=== PATIENT | female | born 1995 | race Caucasian/White ===

== ENCOUNTER 2016-10-03 23:57 | Emergency (ER) | payer MEDICAID ==
[~2016-10-03] VITALS: Ht 160 cm; Wt 61.4 kg
[~2016-10-03 23:57] MED LIST: BIRTH CONTROL; FLAGYL500 MG PO; FLEXERIL 1010 MG/TAB PO; NO HOME MEDICATIONS; PREDNISONE20 MG PO; PROAIR HFA0.09 MG/AC IH; ZITHROMAX500 M2 PO; ZOVIRAX400 MG PO
[2016-10-04 00:01] VITALS: PULSE 86; TEMP 97.5
[2016-10-04 00:49] LABS: PH 6 (5-8); SQUAMOUS EPITHELIAL 0-2 /hpf; URINE APPEARANCE Clear; URINE BACTERIA Rare /hpf; URINE BILIRUBIN Negative (NEGATIVE); URINE BLOOD Negative (NEGATIVE); URINE COLOR Yellow; URINE GLUCOSE Negative (NEGATIVE); URINE KETONE Negative (NEGATIVE); URINE RBC 0-2 /hpf; URINE UROBILINOGEN Negative (NEGATIVE)
[2016-10-04 01:06] LABS: INFLUENZA B NEGATIVE
[2016-10-04] MEDS ORDERED: ZITHROMAX 250M250 MG PO (01:12)
[2016-10-04] MEDS ORDERED: PREDNISONE20 MG PO (01:12)
[2016-10-04 01:40] VITALS: BP 118/77
== END 2016-10-04 01:40 | disposition home or self-care (01) ==
LOC: COL.ER 23:57
PROVIDERS: Emergency Medicine
DX: O99.512 Diseases of the respiratory system complicating pregnancy, second trimester (principal); Z3A.21 21 weeks gestation of pregnancy; J32.9 Chronic sinusitis, unspecified; J40 Bronchitis, not specified as acute or chronic
CPT/HCPCS: J7512

== ENCOUNTER 2017-01-19 09:57 | Inpatient (IN) | payer MEDICAID ==
[~2017-01-19] VITALS: Ht 162.7 cm; Wt 73.6 kg
[~2017-01-19 09:57] MED LIST changes: +ZITHROMAX 250M250 MG PO
[2017-02-06] VITALS (27 sets, daily range): BP systolic 124–166; BP diastolic 80–109; PULSE 63–89; TEMP 97.6–98.2
[2017-02-06] MEDS ORDERED: PRENATAL (07:35)
[2017-02-06 07:53] LABS: MEAN CELL VOLUME 87 fl (80.0-95.0); MEAN CORPUSCULAR HEMOGLOBIN 31 pg (26.0-32.0); MEAN CORPUSCULAR HGB CONC 35 g/dl (33.0-37.0); MEAN PLATELET VOLUME 10.6 fl (7.4-10.4); PLATELET COUNT 330 K/mm3 (130-400); RED BLOOD COUNT 3.94 M/mm3 (4.10-5.30); REDCELL DISTRIBUTION WIDTH-CV 12.8 % (11.5-14.5); WHITE BLOOD COUNT 15.4 K/mm3 (4.8-10.8)
[2017-02-06 07:57] LABS: ADD PATHOLOGY DIFF REVIEW NO; HEMATOCRIT 34.2 % (35.0-45.0)
[2017-02-06 08:12] LABS: NEUTROPHILS 69 % (42.0-75.2); TOTAL CELLS COUNTED 100
[2017-02-06 08:18] LABS: AMPHETAMINE URINE NEGATIVE; BARBITURATES URINE NEGATIVE; BENZODIAZEPINES URINE NEGATIVE; BUPRENORPHINE URINE NEGATIVE; METHADONE URINE NEGATIVE; OPIATES URINE NEGATIVE; OXYCODONE URINE NEGATIVE; PHENCYCLIDINE URINE NEGATIVE; PROPOXYPHENE URINE NEGATIVE; THC CANNABINOIDS URINE NEGATIVE
[2017-02-06 13:20] LABS: BASO % 0.2 % (0.0-2.0); GRAN # 15.2 (1.4-6.5); LYMPH # 2.3 (1.2-3.4); LYMPH % 12.1 % (20.0-51.0); MEAN CELL VOLUME 86 fl (80.0-95.0); MEAN CORPUSCULAR HGB CONC 36 g/dl (33.0-37.0); MEAN PLATELET VOLUME 10.4 fl (7.4-10.4); MONO # 1.2 (0.1-0.6); MONO % 6.3 % (1.7-9.3); PLATELET COUNT 266 K/mm3 (130-400); RED BLOOD COUNT 3.39 M/mm3 (4.10-5.30); REDCELL DISTRIBUTION WIDTH-CV 12.8 % (11.5-14.5); WHITE BLOOD COUNT 18.7 K/mm3 (4.8-10.8)
[2017-02-06 13:21] LABS: HEMATOCRIT 29.3 % (35.0-45.0); HEMOGLOBIN 10.4 g/dl (12.0-15.0); MEAN CORPUSCULAR HEMOGLOBIN 31 pg (26.0-32.0)
[2017-02-06 13:30] LABS: ADJUSTED CALCIUM 9.1 mg/dL (8.4-10.2); ALBUMIN 2.3 gm/dL (3.5-5.0); BILIRUBIN,TOTAL 0.4 mg/dL (0.0-1.0); CALCIUM 7.7 mg/dL (8.4-10.2); CREATININE, serum 0.49 mg/dL (0.52-1.25); POTASSIUM 3.8 mmol/L (3.4-5.0); TOTAL PROTEIN 5.1 gm/dL (6.4-8.2)
[2017-02-07 04:00] VITALS: BP 130/78; PULSE 77; TEMP 97.5
[2017-02-07 07:00] VITALS: BP 118/63; PULSE 76; TEMP 98.1
[2017-02-07] MEDS ORDERED: MOTRIN 800800 MG/TAB PO (08:40)
[2017-02-07] MEDS ORDERED: PERCOCET 325 MG1 TA2 PO (08:40)
[2017-02-07 08:59] LABS: BASO % 0.1 % (0.0-2.0); EOS # 0.1 (0.0-0.7); EOS % 0.5 % (0-4.0); GRAN # 10.1 (1.4-6.5); GRAN % 71.7 % (42.2-75.2); LYMPH # 2.9 (1.2-3.4); LYMPH % 20.5 % (20.0-51.0); MEAN CELL VOLUME 88 fl (80.0-95.0); MEAN CORPUSCULAR HGB CONC 35 g/dl (33.0-37.0); MEAN PLATELET VOLUME 10.3 fl (7.4-10.4); MONO # 0.9 (0.1-0.6); MONO % 6.6 % (1.7-9.3); PLATELET COUNT 271 K/mm3 (130-400); RED BLOOD COUNT 3.32 M/mm3 (4.10-5.30); REDCELL DISTRIBUTION WIDTH-CV 13.2 % (11.5-14.5)
[2017-02-07 09:05] LABS: HEMATOCRIT 29.3 % (35.0-45.0); HEMOGLOBIN 10.1 g/dl (12.0-15.0); MEAN CORPUSCULAR HEMOGLOBIN 30 pg (26.0-32.0)
[2017-02-07 16:54] VITALS: BP 134/70; PULSE 78; TEMP 98.2
[2017-02-07 20:30] VITALS: BP 146/96; PULSE 90; TEMP 98.8
[2017-02-08 07:45] VITALS: BP 136/86; PULSE 93; TEMP 98.6
[2017-02-08 16:24] VITALS: BP 138/89; PULSE 90; TEMP 97.9
[2017-02-08 20:00] VITALS: BP 137/89; PULSE 97; TEMP 97.9
[2017-02-09 09:52] VITALS: BP 131/86; PULSE 81; TEMP 97.6
== END 2017-02-09 17:30 | disposition home or self-care (01) | DRG 765 ==
LOC: LDRO 02-05 09:52 → EDSTATUS 02-06 06:38 → OB 02-06 06:59 → LDRO 02-06 13:48 → OB 02-09 17:30
PROVIDERS: Obstetrics & Gynecology
PROC: 10D00Z1 Extraction of Products of Conception, Low, Open Approach (ICD-10-PCS; principal; 2017-02-06)
DX: O48.0 Post-term pregnancy (principal); O98.313 Other infections with a predominantly sexual mode of transmission complicating pregnancy, third trimester; A60.04 Herpesviral vulvovaginitis; O13.3 Gestational [pregnancy-induced] hypertension without significant proteinuria, third trimester; O75.89 Other specified complications of labor and delivery; Z3A.40 40 weeks gestation of pregnancy; Z37.0 Single live birth
CPT/HCPCS: J0690; J1885; J2250; J2270; J2370; J2405; J2590; J7120

== ENCOUNTER 2017-10-23 04:15 | Emergency (ER) | payer SELFPAY ==
[~2017-10-23] VITALS: Ht 160 cm; Wt 63.6 kg
[~2017-10-23 04:15] MED LIST changes: +MOTRIN 800800 MG/TAB PO; +PERCOCET 325 MG1 TA2 PO; +PRENATAL
[2017-10-23 04:18] VITALS: BP 124/86; TEMP 98.2
[2017-10-23] MEDS ORDERED: AMOXICILLIN 50500 MG PO (04:56)
[2017-10-23] MEDS ORDERED: PERCOCET 325 MG1 TA2 PO (04:56)
[2017-10-23 05:11] VITALS: PULSE 80
== END 2017-10-23 05:13 | disposition home or self-care (01) ==
LOC: COL.ER 04:15
DX: K02.9 Dental caries, unspecified (principal)

== ENCOUNTER 2019-03-03 22:01 | Emergency (ER) | payer MEDICAID ==
[~2019-03-03] VITALS: Ht 160 cm; Wt 72.7 kg
[~2019-03-03 22:01] MED LIST changes: +AMOXICILLIN 50500 MG PO
[2019-03-03 22:06] VITALS: BP 132/80; TEMP 97.7
[2019-03-03] MEDS ORDERED: BIRTH CONTROL (22:29)
[2019-03-03] MEDS ORDERED: FLEXERIL5 MG PO (23:04)
[2019-03-03] MEDS ORDERED: MOTRIN 800800 MG/TAB PO (23:04)
[2019-03-03 23:10] VITALS: PULSE 81
== END 2019-03-03 23:10 | disposition home or self-care (01) ==
LOC: COL.ER 22:01
DX: M54.2 Cervicalgia (principal); F17.290 Nicotine dependence, other tobacco product, uncomplicated
CPT/HCPCS: J1885

== ENCOUNTER 2019-04-21 18:09 | Emergency (ER) | payer MEDICAID ==
[~2019-04-21] VITALS: Ht 162.6 cm; Wt 65.9 kg
[~2019-04-21 18:09] MED LIST changes: +FLEXERIL5 MG PO
[2019-04-21 18:12] VITALS: BP 139/79; TEMP 98.4
[2019-04-21] MEDS ORDERED: JUNEL FE 1/20 21 TAB PO (19:00)
[2019-04-21] MEDS ORDERED: CEPHALEXIN500 M1 PO (20:43)
[2019-04-21 21:09] VITALS: PULSE 94
== END 2019-04-21 21:06 | disposition home or self-care (01) ==
LOC: COL.ER 18:09
DX: S91.311A Laceration without foreign body, right foot, initial encounter (principal); Z23 Encounter for immunization; W25.XXXA Contact with sharp glass, initial encounter; Y92.009 Unspecified place in unspecified non-institutional (private) residence as the place of occurrence of the external cause

== ENCOUNTER 2019-09-27 20:57 | Emergency (ER) | payer MEDICAID ==
[~2019-09-27] VITALS: Ht 162.6 cm; Wt 75.0 kg
[~2019-09-27 20:57] MED LIST changes: +CEPHALEXIN500 M1 PO; +JUNEL FE 1/20 21 TAB PO
[2019-09-27 23:49] LABS: COLLECTION METHOD CLEAN CATCH
[2019-09-28 00:01] LABS: MUCOUS Present /lpf; PH 5 (5-8); SQUAMOUS EPITHELIAL 0-2 /hpf; URINE APPEARANCE Clear; URINE BACTERIA None Seen /hpf; URINE BILIRUBIN Negative (NEGATIVE); URINE BLOOD Negative (NEGATIVE); URINE COLOR Yellow; URINE GLUCOSE Negative (NEGATIVE); URINE KETONE Negative (NEGATIVE); URINE LEUKOCYTE ESTERASE Negative (NEGATIVE); URINE NITRATE Negative (NEGATIVE); URINE PROTEIN(semi-quant) Negative (NEGATIVE); URINE RBC 0-2 /hpf; URINE UROBILINOGEN Negative (NEGATIVE)
[2019-09-28] MEDS ORDERED: ZOFRAN ODT4 MG PO (01:16)
[2019-09-28 01:30] VITALS: BP 134/73; PULSE 73; TEMP 97.9
== END 2019-09-28 01:30 | disposition home or self-care (01) ==
LOC: COL.ER 20:57
PROVIDERS: Physician Assistant
DX: R05 Cough (principal); R11.10 Vomiting, unspecified; R19.7 Diarrhea, unspecified; F17.210 Nicotine dependence, cigarettes, uncomplicated; Z98.890 Other specified postprocedural states

== ENCOUNTER 2020-10-14 13:24 | Emergency (ER) | payer MEDICAID ==
[~2020-10-14] VITALS: Ht 162.6 cm; Wt 75.0 kg
[~2020-10-14 13:24] MED LIST changes: +ZOFRAN ODT4 MG PO
[2020-10-14 13:32] VITALS: BP 131/91; TEMP 98.3
[2020-10-14 14:18] LABS: BASO % 0.3 % (0.0-2.0); EOS # 0.1 (0.0-0.7); GRAN # 5.9 (1.4-6.5); GRAN % 60.8 % (42.2-75.2); HEMATOCRIT 43.4 % (37.0-47.0); HEMOGLOBIN 14.8 g/dl (12.5-16.0); LYMPH # 3.1 (1.2-3.4); LYMPH % 31.3 % (20.0-51.0); MEAN CELL VOLUME 89 fl (80.0-100.0); MEAN CORPUSCULAR HEMOGLOBIN 30 pg (27.0-31.0); MEAN CORPUSCULAR HGB CONC 34 g/dl (33.0-37.0); MEAN PLATELET VOLUME 8.7 fl (7.4-10.4); MONO # 0.6 (0.1-0.6); MONO % 6.3 % (1.7-9.3); PLATELET COUNT 410 K/mm3 (130-400); REDCELL DISTRIBUTION WIDTH-CV 11.9 % (11.5-14.5)
[2020-10-14 14:35] LABS: ALBUMIN 4.4 gm/dL (3.5-5.0); BILIRUBIN,TOTAL 0.6 mg/dL (0.0-1.0); CALCIUM 9.2 mg/dL (8.4-10.2); CREATININE, serum 0.57 (0.52-1.25); POTASSIUM 4.3 mmol/L (3.4-5.0)
[2020-10-14] MEDS ORDERED: PREDNISONE20 MG PO (16:09)
[2020-10-14] MEDS ORDERED: DOXYCYCLINE 10100 MG PO (16:09)
[2020-10-14 16:20] VITALS: PULSE 86
== END 2020-10-14 16:20 | disposition home or self-care (01) ==
LOC: COL.ER 13:24
PROVIDERS: Nurse Practitioner
DX: J20.9 Acute bronchitis, unspecified (principal); J45.909 Unspecified asthma, uncomplicated; F17.200 Nicotine dependence, unspecified, uncomplicated; Z32.02 Encounter for pregnancy test, result negative

== ENCOUNTER 2021-04-12 18:03 | Emergency (ER) | payer MEDICAID ==
[~2021-04-12] VITALS: Ht 160 cm; Wt 79.5 kg
[~2021-04-12 18:03] MED LIST changes: +DOXYCYCLINE 10100 MG PO
[2021-04-12 18:30] VITALS: BP 142/98; PULSE 101; TEMP 98.3
== END 2021-04-12 22:38 | disposition left against medical advice (07) ==
LOC: COL.ER 18:03
DX: R69 Illness, unspecified (principal)